=== PATIENT | female | born 1980 | race Two or more races ===

== ENCOUNTER 2023-07-01 13:28 | Outpatient (AMB) | payer OTHER, SELFPAY ==
[2023-07-01 13:46] VITALS: BMI 41.2
--- NOTE | 2023-07-01 13:46 | A.OFFVIS_ITS ---
Intake VS Expanded 07/01/23 13:46 07/09/23 20:36 Height 5 ft 5 ft Weight 210 lb 15.718 oz 211 lb BMI 41.2 41.2 Intake Visit Reasons: Obesity/ PASCUAL, appt confirmed Medication List - Last Reconciled 07/09/[address], LDN omeprazole 20 mg PO DAILY sertraline 50 mg PO DAILY HPI Nutrition Presentation Details Pt presents for MNT for obesity and hx of pre dm. Pt was referred by CECILIA Hart from [employer]. Pt reports typically having 3 meals/day B:hot cereal with whole milk and juice L: sandwich (ham/cheese) , juice , chips D: rice/beans or pasta / chicken , salads,water reports taking iron supp with vitamin c ETOH---- smoking--- physical activity : daily life activities fruits/d 0-1 ( mainly juices) ve serving/d dairy > 2 serving/d protein foods, 6 oz -8 /day starches > 20 servings fried foods : 1-2x/wk pastries/empty madonna : 1/d beverages 24-36oz/d A1c at 5.4% on 11/2022 NVC-Ymcradt-Nd.Jeor Equation Height 5 ft Weight 211 lb Resting Metabolic Rate 1536.06 Calculated Activity Level Sedentary Calories Needed to Maintain Weight 1843.27 Diagnosis Nutrition problem #1 excessive energy intake (reduced protein intake) As related to (etiology) #1 diagnosis As evidenced by (sign/symptom) #1 food recall and high BMI (41.2 on 06/2023) Monitoring/Goals Nutrition problem monitoring total PRO intake, total CHO intake and weight Nutrition goal/outcome list 3 CHO foods (prot), wt loss 5lbs in 2 months and list 3 high fiber foods Outcome progress verbalized understanding Learning/Education Readiness to learn good Stages of change preparation Educational materials provided Yes (meal planning ) Most Recent Diabetes Results: No Data to Display Assessment & Plan Assessment & Plan (1) Obesity (BMI 30-39.9): Comment: BMI 41 (06/2023) Code(s): E66.9 - Obesity, unspecified Plan: wt: 96 kg Est kcal needs as per MSJ: 1900 (40% carb, 30% protein/fat) Est fluid needs as per 25-30 ml/d:2400 Est prot per day as per 1 g/kg bw: 96 Recommend fiber intake : 8-10 g per day and gradually increase to 25-28 g per day for women and 35-38 g for men or as tolerated Recommend sodium intake per day : less than 2000 mg Educated patient on: ( R = reviewed V = verbalizes understanding N/R = needs review N/A = not applicable * Food sources of carbohydrate, adequate serving sizes and its role in various health conditions: R * Differences between complex carbohydrates a simple carbohydrates, role of fiber in diet: R * Differences between types of fats and role in diet (mono on saturated fat fatty acids, saturated fatty acids, trans fats): R * Food sources of sodium in salt and healthy modifications for heart health in kidney health: NR * Vitamins and minerals: R V * Healthy plate method concept: R V * Physical activity: Benefits a precaution: R * Dietary prevention of Hyperglycemia: R V (2) Pre-diabetes: Code(s): R73.03 - Prediabetes Patient Instructions: Work on following healthy plate method Reduce on total carb to 45-60 g at meal 0-20 g as snack, choosing high fiber sources of foods see meal plan ideas printed and discussed Coding Level of Care Code Nutr Indiv Intake (37945) Diagnoses Obesity (BMI 30-39.9) E66.9 Pre-diabetes R73.03 Time Spent (min) 30
[2023-07-09 20:36] VITALS: BMI 41.2
== END 2023-07-01 15:28 | disposition home or self-care (01) ==
PROVIDERS: Visit Provider Dietitian, Registered
DX: E66.9 Obesity, unspecified (principal); R73.03 Prediabetes

== ENCOUNTER → 2023-07-01 13:28 | Outpatient (BNVA) | payer OTHER, SELFPAY | PROVIDERS: Visit Provider Dietitian, Registered | DX: E66.9 Obesity, unspecified (principal); R73.03 Prediabetes; Z68.41 Body mass index [BMI] 40.0-44.9, adult | CPT/HCPCS: 97802 ==